=== PATIENT | female | born 2000 | race Hispanic/Latino ===

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

== ENCOUNTER 2022-09-20 16:35 | Emergency (ER) | payer OTHER ==
[~2022-09-20] VITALS: Ht 157.5 cm; Wt 136.1 kg
[2022-09-20 16:39] VITALS: BP 138/94; TEMP 98.4
[2022-09-20 17:16] LABS: PLATELET COUNT 317 K/uL (152-353)
== END 2022-09-20 18:15 | disposition home or self-care (01) ==
LOC: ED 16:35
PROVIDERS: Family Medicine
DX: S39.012A Strain of muscle, fascia and tendon of lower back, initial encounter (principal); N39.0 Urinary tract infection, site not specified; E66.8 Other obesity; X58.XXXA Exposure to other specified factors, initial encounter; Y92.89 Other specified places as the place of occurrence of the external cause
CPT/HCPCS: 36415; 80053; 80307; 81002; 81025; 85027; 99283